=== PATIENT | female | born 1965 | race Caucasian/White ===

== ENCOUNTER → 2023-10-08 12:46 | Outpatient (CLI) | payer OTHER, SELFPAY ==
--- NOTE | 2023-10-08 | DI.RAD.S_ITS ---
PROCEDURE: XR THORACIC SPINE 2V INDICATIONS: THORACIC PAIN, OSTEOPOROSIS TECHNIQUE: 3 views of the thoracic spine were acquired. COMPARISON: None. FINDINGS: Bones: Mild rightward spinal curvature in the midthoracic spine. No acute vertebral body height loss. Mild overall background degenerative changes. Soft tissues: No suspicious calcifications. IMPRESSION: Mild background degenerative changes. Mild rightward spinal curvature. If there is high concern for further derangement, consider MRI evaluation. Dictated by: Agustin Stanley M.D. on 10/08/2023 at 16:36 Approved by: Agustin Stanley M.D. on 10/08/2023 at 16:37
--- NOTE | 2023-10-08 | DI.RAD.S_ITS ---
PROCEDURE: XR LUMBAR SPINE 2-3V INDICATIONS: LOW BACK PAIN AND OSTEOPOROSIS TECHNIQUE: 3 views of the lumbar spine were acquired. COMPARISON: None. FINDINGS: Bones: Mild degenerative changes. Trace anterolisthesis of L4 on L5. Vertebral body heights are well maintained. Trace leftward spinal curvature Soft tissues: Moderate fecal loading. IMPRESSION: Mild degenerative changes. If there is high concern for further derangement, consider MRI evaluation. Trace anterolisthesis of L4 on L5 Dictated by: Agustin Stanley M.D. on 10/08/2023 at 16:35 Approved by: Agustin Stanley M.D. on 10/08/2023 at 16:36
--- NOTE | 2023-10-08 12:54 | DI.RAD.S_ITS ---
PROCEDURE: XR HIP W PEL IF DONE BILAT 2V INDICATIONS: OSTEOPOROSIS TECHNIQUE: 3 views of the hip were acquired. COMPARISON: None. FINDINGS: Bones: Mild bilateral hip arthrosis. No acute displaced fracture or dislocation. Soft tissues: No suspicious calcifications. IMPRESSION: Mild bilateral hip arthrosis. No acute radiographic abnormality. If there is high concern for further derangement, consider MRI evaluation. Consider DEXA to evaluate bone mineral density. Dictated by: Agustin Stanley M.D. on 10/08/2023 at 16:35 Approved by: Agustin Stanley M.D. on 10/08/2023 at 16:35
== END ==
PROVIDERS: Referring Provider Family Medicine; Visit Provider Family Medicine
DX: M16.0 Bilateral primary osteoarthritis of hip (principal); M47.816 Spondylosis without myelopathy or radiculopathy, lumbar region; M41.9 Scoliosis, unspecified; M81.0 Age-related osteoporosis without current pathological fracture; M25.559 Pain in unspecified hip; M54.6 Pain in thoracic spine; M54.50 Low back pain, unspecified
CPT/HCPCS: 72070; 72100; 73521